=== PATIENT | female | born 1960 | race Caucasian/White ===

== ENCOUNTER → 2018-12-24 16:14 | Outpatient (REF) | payer OTHER, SELFPAY | LOC: LAB 16:14 | PROVIDERS: Visit Provider Family Medicine | DX: R21 Rash and other nonspecific skin eruption (principal) | CPT/HCPCS: 87102 ==

== ENCOUNTER → 2019-07-21 12:19 | Outpatient (CLI) | payer OTHER, SELFPAY ==
--- NOTE | 2019-07-21 | DI.US.S_ITS ---
ULTRASOUND OF LEFT BREAST AND AXILLA: 07/21/2019 CLINICAL: Palpable left breast lump. and indentation. Comparison is made to exams dated: 07/21/2019 mammogram - [facility], 07/22/2018 mammogram, 06/05/2017 mammogram, 05/30/2016 mammogram, 05/18/2014 mammogram, and 05/13/2013 mammogram - [facility]. Color flow and real-time ultrasound of the left breast axilla were performed. Mauricio scale images of the real-time examination were reviewed. There is an irregular mass with two components spanning from the 1:30 o'clock, 5 cm from the nipple to the 2:30 o'clock 6cm from the nipple measuring approximately 3.7 cm in combined dimension. The 1:30 o'clock component measures approximately 1.9 x 0.9 x 1.7 cm in size and the 2:30 o'clock component measures approximately 1.8 x 0.8 x 1.1 cm in size. This mass is hypoechoic and heterogeneously echogenic. This correlates as palpated and with area of clinical concern. There is associated architectural distortion as it is in close proximity to the site of previous surgery and site of skin retraction. No abnormalities were seen sonographically in the left axilla. IMPRESSION: SUSPICIOUS OF MALIGNANCY The irregular mass in the left breast spanning the 1:30 o'clock to 2:30 o'clock position is suspicious of malignancy. An ultrasound guided biopsy is recommended. Findings and recommendations for biopsy were discussed with the patient by Dr. Chapin during today's visit. The patient agreed to proceed with the biopsy. This exam was interpreted at Station ID: [id number]. Electronically Signed By: Magdiel Alexandre M.D. aty/:07/21/2019 17:04:17 letter sent: Biopsy Required Ultrasound BI-RADS: 4 Suspicious abnormality
--- NOTE | 2019-07-21 | DI.MG.S_ITS ---
BILATERAL DIGITAL DIAGNOSTIC MAMMOGRAM 3D/2D POST LUMPECTOMY: 07/21/2019 CLINICAL: Left breast mass and Indentation. Comparison is made to exams dated: 07/22/2018 mammogram, 06/05/2017 mammogram, and 05/30/2016 mammogram - [facility]. The tissue of both breasts is heterogeneously dense. This may lower the sensitivity of mammography. The left breast has stable post-operative findings. No significant masses, calcifications, or other findings are seen in either breast. IMPRESSION: INCOMPLETE: NEEDS ADDITIONAL IMAGING EVALUATION There is no abnormality seen in the left breast to correspond with the area of clinical concern, palpable abnormality, and skin retraction indicated by triangular marker in the upper outer quadrant. An ultrasound is recommended for further evaluation and is scheduled to immediately follow this examination. This exam was interpreted at Station ID: [id number]. NOTE: For mammograms, a report in lay terms will be sent to the patient. Approximately 15% of breast malignancies will not be visualized mammographically. In the management of a palpable breast mass, a negative mammogram must not discourage biopsy of a clinically suspicious lesion. Electronically Signed By: Magdiel Alexandre M.D. aty/:07/21/2019 13:47:46 ACR BI-RADS Category 0: Incomplete [id number]
== END ==
PROVIDERS: PCP Family Medicine; Visit Provider Family Medicine
DX: N63.20 Unspecified lump in the left breast, unspecified quadrant (principal)
CPT/HCPCS: 76642; 77066; G0279

== ENCOUNTER → 2019-08-05 07:27 | Outpatient (CLI) | payer OTHER, SELFPAY ==
--- NOTE | 2019-08-05 | DI.MG.S_ITS ---
UNILATERAL LEFT DIGITAL DIAGNOSTIC MAMMOGRAM POST-NEEDLE BIOPSY: 08/05/2019 CLINICAL: Left breast mass. Comparison is made to exams dated: 07/21/2019 mammogram - [facility], 07/22/2018 mammogram, and 06/05/2017 mammogram - [facility]. The tissue of left breast is heterogeneously dense. This may lower the sensitivity of mammography. There is a biopsy clip in the left breast at the biopsy site. IMPRESSION: POST PROCEDURE MAMMOGRAM FOR MARKER PLACEMENT A biopsy clip in the left breast at the biopsy site. This exam was interpreted at Station ID: [id number]. NOTE: For mammograms, a report in lay terms will be sent to the patient. Approximately 15% of breast malignancies will not be visualized mammographically. In the management of a palpable breast mass, a negative mammogram must not discourage biopsy of a clinically suspicious lesion. Electronically Signed By: Eleuterio Adorno M.D. fx/:08/06/2019 09:56:32 Entry: - 08/06/2019 09:56:32 ACR BI-RADS Category Post-procedure mammogram for marker placement
--- NOTE | 2019-08-05 | DI.US.S_ITS ---
ULTRASOUND GUIDED BIOPSY LEFT BREAST USING VACUUM DEVICE WITH POST MAMMOGRAPHIC AND ULTRASOUND IMAGIN08/05/2019 CLINICAL: Left breast mass. PATIENT CONSENT: Risks (minor bleeding, infection, vasovagal reaction and repeat procedure), benefits and alternatives were explained to the patient and written informed consent was obtained. Correlation is made to exams dated: 08/05/2019 mammogram, 07/21/2019 ultrasound, 07/21/2019 mammogram - [facility], 07/22/2018 mammogram, 06/05/2017 mammogram, and 05/30/2016 mammogram - [facility]. An ultrasound guided biopsy using real-time ultrasound was performed for the irregular shaped mass located in the left breast at 1:30 o'clock posterior depth. This was described on the previous ultrasound report. The skin was prepped in the usual manner. Local anesthetic was administered to the access site. A small incision was made in the breast. The abnormality was approached from the lateral aspect. A 13 gauge biopsy needle was placed adjacent to the abnormality under ultrasound guidance. Once the needle was documented to be in the correct location, 8 specimens were obtained using the Mammotome biopsy system. Post procedure mammographic and ultrasound imaging demonstrates the clip at the targeted area. The specimens were sent to the laboratory for pathological analysis. IMPRESSION: ULTRASOUND GUIDED BIOPSY MALIGNANT Ultrasound guided biopsy of the mass in the left breast middle depth was successful. Pathology indicates malignant ductal carcinoma in situ (DCIS). Pathology results are concordant with imaging findings. A surgical/oncologic consultation is recommended. This exam was interpreted at Station ID: [id number]. Eleuterio Alexandre M.D. fx,aty/:08/10/2019 18:50:41
--- NOTE | 2019-08-05 | PATH_ITS ---
[facility] Accession Number: [id number] . 01 Material submitted: . breast - LEFT BREAST CORE BIOPSY 1:30 O'CLOCK 5 CM FN, 8 PASSES . 01 Diagnosis: A. Left Breast, 1:30 O'clock, 5 cm From The Nipple, Biopsy: Ductal carcinoma in situ (DCIS) with the following features: - Architectural pattern: Cribriform and Arcades/Bridges. - Nuclear grade: High. - Necrosis: Present, focal (single cell necrosis). - Extent of DCIS: Present on multiple cores, single largest dimension of at least 0.3 cm. - Calcifications: Present, in association with DCIS and stromal fibrosis/inflammation. - Estrogen receptor status: Negative (0% of tumor cells staining). MNT/08/09/2019 . 01 Comment: Dr. Harding reviewed the case (including the immunostains) and agrees with the diagnosis. . 01 Electronically signed: . Laurel Wooten MD, Pathologist NPI- [id number] . 01 Gross description: . Received one formalin-filled container labeled with the patient's name and designated left breast core biopsy 1:30 o'clock 5 cm FN 8 passes. The specimen is received with a plastic filter in container, sample loose in container and consists of multiple light yellow-calvert pieces of tissue which range in size from less than 0.1 cm to 0.6 x 0.2 x 0.2 cm. The specimen is filtered, wrapped, and entirely submitted in one cassette. Collection date: 08/05/2019. Possible collection time: 09:36. Total fixation time: 12 hours, up to 24. ([id number]) /FRR . 01 Microscopic: . Focally distorted areas of ductal carcinoma in situ demonstrate irregular edges with associated stromal fibrosis and inflammation, raising suspicion for microinvasive carcinoma. These foci are evaluated with immunohistochemistry for myoepithelial markers (smooth muscle myosin and p63), deeper levels, and prognostic marker (ER) with appropriately staining external controls. Within these foci, p63 and smooth muscle myosin highlight scattered cells, excluding definitive evidence for invasive carcinoma. . Predictive marker immunohistochemical studies are performed on block A1; Ductal carcinoma in situ shows the following results: . Estrogen receptor (SP1): Negative (0% tumor cells staining). . Internal controls for ER are positive. Cold ischemic time is less than 5 minutes. The scoring criteria for breast biomarkers by immunohistochemistry is based on the ASCO/CAP guidelines (Blaire AC et al J Clin Oncol 2018: 2018 May 10;36(20):3376-8039 and June ME et al, Arch Pathol Lab Med 2009;134(6):907-22). Deparaffinized sections of formalin fixed tissue (along with appropriate positive controls) are incubated with the above antibody(s). Using the automated [place] stainer, tissue is incubated with the designated antibody which is then localized by a non-biotin, dual polymer detection system. The external controls are reviewed for appropriate reactivity and found to be adequate. Results on the target cell population are indicated above. These tests have not been validated on decalcified tissue. This test was developed and its performance characteristics determined by [employer]. It has not been cleared or approved by the U.S. Food and Drug Administration. The FDA has determined that such clearance or approval is not necessary. This test is used for clinical purposes. It should not be regarded as investigational or for research. . 01 Pathologist provided ICD-10: D05.12 . 01 CPT . 985260, P22844, [id number], 126637 Performed at: 01 [facility] [address], [place], [place] [id number] MD Leonid Lai MD Phone: [phone]
== END ==
PROVIDERS: PCP Family Medicine; Visit Provider Family Medicine
DX: D05.12 Intraductal carcinoma in situ of left breast (principal)
CPT/HCPCS: 19083; 77065